=== PATIENT | female | born 1980 | race Caucasian/White ===

== ENCOUNTER 2021-02-19 03:44 | Outpatient (CLI) | payer BC, SELFPAY ==
[2021-02-19 15:24] LABS: ALT 21 U/L (14-59); AST 10 U/L (15-37); Albumin 3.9 g/dL (3.4-5.0); Alkaline Phosphatase 57 U/L (46-116); Anion Gap 8.5 mmol/L (3-11); BUN 13 mg/dL (7-18); Bilirubin, Total 0.7 mg/dL (0.2-1.0); CO2 27.5 mmol/L (21.0-32.0); CREATININE 0.8 mg/dL (0.55-1.02); Calcium 8.9 mg/dL (8.5-10.1); Chloride 104 mmol/L (98-107); Glucose 80 mg/dL (74-106); Magnesium 1.9 mg/dL (1.8-2.4); Potassium 4.1 mmol/L (3.5-5.1); Sodium 140 mmol/L (136-145); Total Protein 7.2 g/dL (6.4-8.2)
[2021-02-22 11:23] LABS: 25-Hydroxy D Total 43 ng/mL; 25-Hydroxy D2 <4.0 ng/mL; 25-Hydroxy D3 43 ng/mL
== END 2021-02-19 03:45 | disposition home or self-care (01) ==
LOC: LBO 03:44
PROVIDERS: PCP Internal Medicine; Visit Provider Naturopath
DX: E55.9 Vitamin D deficiency, unspecified (principal); Z79.2 Long term (current) use of antibiotics
CPT/HCPCS: 36415; 80053; 82306; 83735

== ENCOUNTER 2021-03-14 12:25 | Outpatient (CLI) | payer BC, SELFPAY ==
[2021-03-14 14:06] LABS: Abs Immature Grans 0.01 10^3/uL (0.0-0.06); Absolute Basophil Count 0.05 10^3/uL (0.0-0.2); Absolute Eosinophil Count 0.09 10^3/uL (0.0-0.7); Absolute Lymphocyte Count 1.48 10^3/uL (1.2-3.4); Absolute Monocyte Count 0.68 10^3/uL (0.1-0.8); Absolute Neutrophil Count 3.98 10^3/uL (1.2-6.7); Basophils % 0.8; Eosinophils % 1.4; HCT 40.1 % (36.0-46.0); HGB 13.4 g/dL (11.2-15.7); Immature Grans % 0.2; Lymphocytes % 23.5; MCHC 33.4 % (32.0-36.0); MCV 95.7 fL (80-95); MPV 9.7 fL (8.0-11.0); Monocytes % 10.8; Neutrophils % 63.3; Nucleated RBC 0 %; Platelet Count 279 10^3/uL (130-400); RBC 4.19 10^6/uL (3.93-5.22); RDW 12.3 % (11.7-14.6); RDW-SD 42.9 fL; WBC 6.29 10^3/uL (4.4-10.8)
[2021-03-14 15:26] LABS: ALT 33 U/L (14-59); AST 17 U/L (15-37); Albumin 3.7 g/dL (3.4-5.0); Alkaline Phosphatase 73 U/L (46-116); Anion Gap 3.7 mmol/L (3-11); BUN 10 mg/dL (7-18); Bilirubin, Total 0.5 mg/dL (0.2-1.0); CO2 29.3 mmol/L (21.0-32.0); CREATININE 0.8 mg/dL (0.55-1.02); Calcium 8.9 mg/dL (8.5-10.1); Chloride 105 mmol/L (98-107); Glucose 83 mg/dL (74-106); Potassium 4.1 mmol/L (3.5-5.1); Sodium 138 mmol/L (136-145); Total Protein 6.9 g/dL (6.4-8.2)
== END 2021-03-14 12:26 | disposition home or self-care (01) ==
LOC: LBO 12:28
PROVIDERS: PCP Internal Medicine; Visit Provider Naturopath
DX: Z79.2 Long term (current) use of antibiotics (principal)
CPT/HCPCS: 36415; 80053; 85025

== ENCOUNTER 2021-03-17 10:18 | Emergency (ER) | payer BC, SELFPAY ==
[2021-03-17 10:31] VITALS: BP 130/89; PULSE 82; RESP 18; TEMP 36.3; O2SAT 98
[2021-03-17 10:42] VITALS: RESP 18
[2021-03-17 10:57] LABS: Abs Immature Grans 0.01 10^3/uL (0.0-0.06); Absolute Basophil Count 0.03 10^3/uL (0.0-0.2); Absolute Eosinophil Count 0.07 10^3/uL (0.0-0.7); Absolute Lymphocyte Count 1.49 10^3/uL (1.2-3.4); Absolute Monocyte Count 0.51 10^3/uL (0.1-0.8); Absolute Neutrophil Count 3.66 10^3/uL (1.2-6.7); Basophils % 0.5; Eosinophils % 1.2; HCT 42.4 % (36.0-46.0); Immature Grans % 0.2; Lymphocytes % 25.8; MCH 31.7 pg (27.0-33.0); MCV 95.9 fL (80-95); Monocytes % 8.8; Neutrophils % 63.5; Nucleated RBC 0 %; Platelet Count 295 10^3/uL (130-400); RBC 4.42 10^6/uL (3.93-5.22); RDW 12.3 % (11.7-14.6); RDW-SD 43.3 fL; WBC 5.77 10^3/uL (4.4-10.8)
[2021-03-17] MEDS: Normal Saline 1,000 ML 1000 ML IV (11:00)
[2021-03-17 11:09] LABS: ALT 32 U/L (14-59); AST 14 U/L (15-37); Albumin 3.9 g/dL (3.4-5.0); Alkaline Phosphatase 75 U/L (46-116); Anion Gap 7.4 mmol/L (3-11); BUN 10 mg/dL (7-18); Bilirubin, Total 0.5 mg/dL (0.2-1.0); CO2 28.6 mmol/L (21.0-32.0); CREATININE 0.9 mg/dL (0.55-1.02); Calcium 8.5 mg/dL (8.5-10.1); Chloride 105 mmol/L (98-107); Glucose 90 mg/dL (74-106); Magnesium 1.8 mg/dL (1.8-2.4); Potassium 3.7 mmol/L (3.5-5.1); Sodium 141 mmol/L (136-145); Total Protein 7.5 g/dL (6.4-8.2)
--- NOTE | 2021-03-17 11:30 | ED.GENADUL_ITS ---
Discharge Plan Disposition Patient Disposition: HOME Condition: Improving Discharge Details Clinical Impression: Vertigo Primary Care Provider: Sergio Shaikh ED Provider: Shirley Prater Home Meds and New Rx's Prescriptions: No Action trazodone 50 MG tablet 12.5 mg PO HS RF: 0 lorazepam 0.5 MG tablet 0.5 mg PO PRN PRNRF: 0 amlodipine [Norvasc] 2.5 MG tablet 2.5 mg PO HS RF: 0 Discharge Instructions Instructions: Vertigo (ED) Additional Instructions: continue your home medication as previously prescribed. drink plenty of fluids to stay well hydrated return sooner for new or worsening symptoms Referrals: Sergio Shaikh [Primary Care Provider] - Medical Decision Making patient presents with symptoms of dizziness, worse with position changes, will establish IV, give 1 liter of NS, declines any further medication at this time including antiemetics. labs reviewed and unremarkable. patient symptoms resolved after receiving IV fluid, vitals are stable. is stable for and agreeable to discharge to home. no medication changes. follow up with outpatient team Lab Data Lab results reviewed: Yes I reviewed the patient's lab results. Labs: Laboratory Results - last 24 hr 03/17/21 03/17/21 10:40 10:40 WBC 5.77 RBC 4.42 Hgb 14.0 Hct 42.4 MCV 95.9 H MCH 31.7 MCHC 33.0 RDW 12.3 Plt Count 295 MPV 10.0 Immature Gran % 0.2 Neutrophils % 63.5 Lymphocytes % 25.8 Monocytes % 8.8 Eosinophils % 1.2 Basophils % 0.5 Nucleated RBC % 0 Absolute Neutrophils 3.66 Absolute Lymphocytes 1.49 Absolute Monocytes 0.51 Absolute Eosinophils 0.07 Absolute Basophils 0.03 Sodium 141 Potassium 3.7 Chloride 105 Carbon Dioxide 28.6 Anion Gap 7.4 BUN 10 Creatinine 0.9 Estimated GFR/1.73 m2 >= 60.00 Glucose 90 Calcium 8.5 Magnesium 1.8 Total Bilirubin 0.5 AST 14 L ALT 32 Alkaline Phosphatase 75 Total Protein 7.5 Albumin 3.9 HPI General Mode of arrival: ambulatory . Date/Time Provider Initiated Documentation: 03/17/21 10:23 . Limitations to Documentation: no limitations . Information obtained by: patient . HPI Narrative: patient presents for a sudden onset today of nausea, dizziness, no recent illness, no fevers has mild headache no vomiting. had been eating and drinking well, no similar history. has had lyme disease 4 years ago and is being treated and now with disulfiram which was started 4 weeks ago. Related Data Home Medications Medication Instructions Recorded Confirmed lorazepam 0.5 mg PO PRN PRN 04/14/16 09/07/17 trazodone 12.5 mg PO HS 04/14/16 09/07/17 amlodipine [Norvasc] 2.5 mg PO HS 09/07/17 09/07/17 Allergies Allergy/AdvReac Type Severity Reaction Status Date / Time Sulfa (Sulfonamide Allergy Intermediate Hives Unverified 09/07/17 16:03 Antibiotics) General Stated Complaint: Dizzy/Sync BRENDON: 3 Review of Systems All systems reviewed & are unremarkable except as noted in HPI and below Constitutional Constitutional: Denies fever(s) Eyes Eyes: Denies loss of vision ENT Ears, Nose, Mouth, and Throat: Reports vertigo, Reports dizziness and Denies disequilibrium Neurologic Neurologic: Reports vertigo, Reports dizziness, Denies localized weakness, Denies loss of vision, Denies convulsions and Denies disequilibrium PFSH Social History Smoking/Tobacco Use Status: Never Smoking risk assessment performed?: Yes Drug use: Never Do you feel safe in your relationship?: Yes Exam Const General: cooperative, healthy appearing and comfortable Nutritional Appearance: average body habitus Orientation: alert, awake and oriented x3 HENMT Head: normal to inspection, normocephalic and atraumatic Mouth: oral mucosae normal Eyes General: appearance normal, both eyes and all related structures Alignment and Position: alignment normal Eyelids: eyelids normal Conjunctivae: conjunctivae normal Sclera: sclerae normal Cornea: corneas normal EOM: EOM intact bilaterally and No nystagmus Resp Effort & Inspection: normal respiratory effort Cardio Rate: regular rate Rhythm: regular rhythm GI Inspection: normal to inspection Palpation: soft and nontender Auscultation: normal bowel sounds Skin General skin exam: no rashes or lesions noted Neuro General: patient alert, patient awake, patient oriented x3 and no focal motor deficits Cranial Nerves: CN's II-XI intact bilaterally, PERRL, EOM intact bilaterally, no nystagmus and no nystagmus Cognition: normal cognition Speech: speech normal Gait: normal gait Motor: muscle tone normal throughout Sensory Exam: no sensory deficits noted Extrem General: normal to inspection Course Vital Signs Vital signs: Vital Signs Temperature 36.3 C L 03/17/21 10:31 Pulse 82 03/17/21 10:31 Respiratory Rate 18 03/17/21 10:31 Blood Pressure 130/89 03/17/21 10:31 Pulse Oximetry 98 03/17/21 10:31 Temperature 36.3 C L 03/17/21 10:31 Temperature Source Temporal Artery Scan 03/17/21 10:31 Pulse 82 03/17/21 10:31 Respiratory Rate 18 03/17/21 10:42 Respiratory Effort Non-Labored 03/17/21 10:42 Respiratory Depth Normal 03/17/21 10:42 Respiratory Pattern Normal 03/17/21 10:42 Blood Pressure 130/89 03/17/21 10:31 Blood Pressure Position Sitting 03/17/21 10:31 Pulse Oximetry 98 03/17/21 10:31 Oxygen Delivery Method Room Air 03/17/21 10:31 Oxygen Flow Rate 0 03/17/21 10:31 Lab/Test Results Lab/Test Results: Laboratory Tests Range/Units 03/17/21 03/17/21 10:40 10:40 WBC (4.4-10.8) 10^3/uL 5.77 RBC (3.93-5.22) 10^6/uL 4.42 Hgb (11.2-15.7) g/dL 14.0 Hct (36.0-46.0) % 42.4 MCV (80-95) fL 95.9 H MCH (27.0-33.0) pg 31.7 MCHC (32.0-36.0) % 33.0 RDW (11.7-14.6) % 12.3 Plt Count (130-400) 10^3/uL 295 MPV (8.0-11.0) fL 10.0 Immature Gran % 0.2 Neutrophils % 63.5 Lymphocytes % 25.8 Monocytes % 8.8 Eosinophils % 1.2 Basophils % 0.5 Nucleated RBC % % 0 Absolute Neutrophils (1.2-6.7) 10^3/uL 3.66 Absolute Lymphocytes (1.2-3.4) 10^3/uL 1.49 Absolute Monocytes (0.1-0.8) 10^3/uL 0.51 Absolute Eosinophils (0.0-0.7) 10^3/uL 0.07 Absolute Basophils (0.0-0.2) 10^3/uL 0.03 Sodium (136-145) mmol/L 141 Potassium (3.5-5.1) mmol/L 3.7 Chloride (98-107) mmol/L 105 Carbon Dioxide (21.0-32.0) mmol/L 28.6 Anion Gap (3-11) mmol/L 7.4 BUN (7-18) mg/dL 10 Creatinine (0.55-1.02) mg/dL 0.9 Estimated GFR/1.73 m2 (mL/min/1.73m2) >= 60.00 Glucose (74-106) mg/dL 90 Calcium (8.5-10.1) mg/dL 8.5 Magnesium (1.8-2.4) mg/dL 1.8 Total Bilirubin (0.2-1.0) mg/dL 0.5 AST (15-37) U/L 14 L ALT (14-59) U/L 32 Alkaline Phosphatase (46-116) U/L 75 Total Protein (6.4-8.2) g/dL 7.5 Albumin (3.4-5.0) g/dL 3.9
[2021-03-17 12:06] LABS: Bilirubin Negative (Negative); Blood Negative (Negative); Clarity Clear (Clear); Glucose Negative (Negative); Ketones Negative (Negative); Leukocyte Esterase Negative (Negative); Nitrite Negative (Negative); Specific Gravity 1.015 (1.005-1.025); Urobilinogen 0.2 EU/dL (Up TO 0.2)
[2021-03-17 12:23] VITALS: BP 127/81; PULSE 85; RESP 16; TEMP 37; O2SAT 99
== END 2021-03-17 13:02 | disposition home or self-care (01) ==
PROVIDERS: Emergency Provider Nurse Practitioner Acute Care; PCP Internal Medicine
DX: R42 Dizziness and giddiness (principal); R11.0 Nausea
CPT/HCPCS: 36415; 80053; 96360; 99284; 81003; 83735; 85025; 99283

== ENCOUNTER 2021-03-28 02:57 | Outpatient (CLI) | payer BC, SELFPAY ==
[2021-03-28 15:59] LABS: Absolute Basophil Count 0.04 10^3/uL (0.0-0.2); Absolute Eosinophil Count 0.08 10^3/uL (0.0-0.7); Absolute Lymphocyte Count 1.23 10^3/uL (1.2-3.4); Absolute Neutrophil Count 2.28 10^3/uL (1.2-6.7); Basophils % 0.9; Eosinophils % 1.8; HCT 37.8 % (36.0-46.0); HGB 12.6 g/dL (11.2-15.7); Lymphocytes % 28.4; MCH 31.7 pg (27.0-33.0); MCHC 33.3 % (32.0-36.0); MCV 95.2 fL (80-95); MPV 10.4 fL (8.0-11.0); Monocytes % 16.2; Neutrophils % 52.7; Nucleated RBC 0 %; Platelet Count 216 10^3/uL (130-400); RBC 3.97 10^6/uL (3.93-5.22); RDW 12.5 % (11.7-14.6); RDW-SD 43.7 fL; WBC 4.33 10^3/uL (4.4-10.8)
[2021-03-28 17:13] LABS: ALT 21 U/L (14-59); AST 13 U/L (15-37); Albumin 3.9 g/dL (3.4-5.0); Alkaline Phosphatase 61 U/L (46-116); Anion Gap 11.9 mmol/L (3-11); BUN 8 mg/dL (7-18); Bilirubin, Total 0.6 mg/dL (0.2-1.0); CO2 24.1 mmol/L (21.0-32.0); CREATININE 0.8 mg/dL (0.55-1.02); Calcium 8.8 mg/dL (8.5-10.1); Chloride 103 mmol/L (98-107); Glucose 71 mg/dL (74-106); Potassium 3.7 mmol/L (3.5-5.1); Sodium 139 mmol/L (136-145)
== END 2021-03-28 02:58 | disposition home or self-care (01) ==
LOC: LBO 02:57
PROVIDERS: PCP Internal Medicine; Visit Provider Naturopath
DX: Z79.2 Long term (current) use of antibiotics (principal)
CPT/HCPCS: 36415; 80053; 85025

== ENCOUNTER 2021-04-11 04:04 | Outpatient (CLI) | payer BC, SELFPAY ==
[2021-04-11 15:56] LABS: Abs Immature Grans 0.02 10^3/uL (0.0-0.06); Absolute Basophil Count 0.04 10^3/uL (0.0-0.2); Absolute Eosinophil Count 0.09 10^3/uL (0.0-0.7); Absolute Lymphocyte Count 1.61 10^3/uL (1.2-3.4); Absolute Monocyte Count 0.59 10^3/uL (0.1-0.8); Absolute Neutrophil Count 3.03 10^3/uL (1.2-6.7); Basophils % 0.7; Eosinophils % 1.7; HGB 13.4 g/dL (11.2-15.7); Immature Grans % 0.4; Lymphocytes % 29.9; MCH 32.1 pg (27.0-33.0); MCHC 33.5 % (32.0-36.0); MCV 95.9 fL (80-95); Neutrophils % 56.3; Nucleated RBC 0 %; Platelet Count 263 10^3/uL (130-400); RBC 4.17 10^6/uL (3.93-5.22); RDW 12.4 % (11.7-14.6); RDW-SD 43.8 fL; WBC 5.38 10^3/uL (4.4-10.8)
[2021-04-11 16:40] LABS: ALT 32 U/L (14-59); AST 18 U/L (15-37); Albumin 3.8 g/dL (3.4-5.0); Alkaline Phosphatase 72 U/L (46-116); Anion Gap 9.6 mmol/L (3-11); BUN 7 mg/dL (7-18); Bilirubin, Total 0.3 mg/dL (0.2-1.0); CO2 28.4 mmol/L (21.0-32.0); CREATININE 0.9 mg/dL (0.55-1.02); Calcium 8.5 mg/dL (8.5-10.1); Chloride 102 mmol/L (98-107); Glucose 83 mg/dL (74-106); Potassium 3.3 mmol/L (3.5-5.1); Sodium 140 mmol/L (136-145)
== END 2021-04-11 04:05 | disposition home or self-care (01) ==
LOC: LBO 04:04
PROVIDERS: PCP Internal Medicine; Visit Provider Naturopath
DX: Z79.2 Long term (current) use of antibiotics (principal)
CPT/HCPCS: 36415; 80053; 85025

== ENCOUNTER 2021-04-25 00:57 | Outpatient (CLI) | payer BC, SELFPAY ==
[2021-04-25 16:13] LABS: Abs Immature Grans 0.01 10^3/uL (0.0-0.06); Absolute Basophil Count 0.05 10^3/uL (0.0-0.2); Absolute Eosinophil Count 0.11 10^3/uL (0.0-0.7); Absolute Lymphocyte Count 1.12 10^3/uL (1.2-3.4); Absolute Monocyte Count 0.66 10^3/uL (0.1-0.8); Absolute Neutrophil Count 2.13 10^3/uL (1.2-6.7); Basophils % 1.2; Eosinophils % 2.7; HCT 39.8 % (36.0-46.0); HGB 13.4 g/dL (11.2-15.7); Immature Grans % 0.2; Lymphocytes % 27.5; MCH 32.1 pg (27.0-33.0); MCHC 33.7 % (32.0-36.0); MCV 95.4 fL (80-95); MPV 10.6 fL (8.0-11.0); Monocytes % 16.2; Neutrophils % 52.2; Nucleated RBC 0 %; Platelet Count 245 10^3/uL (130-400); RBC 4.17 10^6/uL (3.93-5.22); RDW 12.7 % (11.7-14.6); RDW-SD 44.5 fL; WBC 4.08 10^3/uL (4.4-10.8)
[2021-04-25 17:07] LABS: ALT 32 U/L (14-59); AST 16 U/L (15-37); Albumin 3.7 g/dL (3.4-5.0); Alkaline Phosphatase 65 U/L (46-116); Anion Gap 10.3 mmol/L (3-11); BUN 9 mg/dL (7-18); Bilirubin, Total 0.3 mg/dL (0.2-1.0); CO2 26.7 mmol/L (21.0-32.0); Calcium 8.3 mg/dL (8.5-10.1); Chloride 103 mmol/L (98-107); Glucose 75 mg/dL (74-106); Potassium 3.9 mmol/L (3.5-5.1); Sodium 140 mmol/L (136-145); Total Protein 7.1 g/dL (6.4-8.2)
== END 2021-04-25 00:58 | disposition home or self-care (01) ==
PROVIDERS: PCP Internal Medicine; Visit Provider Naturopath
DX: Z79.2 Long term (current) use of antibiotics (principal)
CPT/HCPCS: 36415; 80053; 85025

== ENCOUNTER 2021-05-10 03:18 | Outpatient (CLI) | payer BC, SELFPAY ==
[2021-05-10 16:18] LABS: Abs Immature Grans 0.01 10^3/uL (0.0-0.06); Absolute Basophil Count 0.03 10^3/uL (0.0-0.2); Absolute Lymphocyte Count 1.48 10^3/uL (1.2-3.4); Absolute Monocyte Count 0.51 10^3/uL (0.1-0.8); Absolute Neutrophil Count 2.84 10^3/uL (1.2-6.7); Basophils % 0.6; HCT 41.4 % (36.0-46.0); HGB 13.7 g/dL (11.2-15.7); Immature Grans % 0.2; Lymphocytes % 29.8; MCH 31.3 pg (27.0-33.0); MCHC 33.1 % (32.0-36.0); MCV 94.5 fL (80-95); MPV 10.7 fL (8.0-11.0); Monocytes % 10.3; Neutrophils % 57.1; Nucleated RBC 0 %; Platelet Count 244 10^3/uL (130-400); RBC 4.38 10^6/uL (3.93-5.22); RDW 12.6 % (11.7-14.6); RDW-SD 43.9 fL; WBC 4.97 10^3/uL (4.4-10.8)
[2021-05-10 17:49] LABS: ALT 102 U/L (14-59); AST 41 U/L (15-37); Albumin 3.9 g/dL (3.4-5.0); Alkaline Phosphatase 94 U/L (46-116); Anion Gap 6.7 mmol/L (3-11); BUN 5 mg/dL (7-18); Bilirubin, Total 0.4 mg/dL (0.2-1.0); CO2 29.3 mmol/L (21.0-32.0); CREATININE 0.9 mg/dL (0.55-1.02); Chloride 103 mmol/L (98-107); Glucose 77 mg/dL (74-106); Sodium 139 mmol/L (136-145); Total Protein 7.1 g/dL (6.4-8.2)
== END 2021-05-10 03:19 | disposition home or self-care (01) ==
LOC: LBO 03:18
PROVIDERS: PCP Internal Medicine; Visit Provider Naturopath
DX: Z79.2 Long term (current) use of antibiotics (principal)
CPT/HCPCS: 36415; 80053; 85025

== ENCOUNTER 2021-05-23 01:15 | Outpatient (CLI) | payer BC, SELFPAY ==
--- NOTE | 2021-05-23 16:20 | DI.MAMMO_ITS ---
Exam(s) MAMMO SCREENING EXAM: MAMMO SCREENING CLINICAL HISTORY: SCREENING, BASELINE,Z12.31. TECHNIQUE: Bilateral full field digital CC and MLO mammographic images were obtained with 3D tomosyn thesis and utilizing computer aided detection (CAD). COMPARISON: None. This is a baseline screening mammogram on this 41-year-old patient. FINDINGS: Fibroglandular tissue pattern is moderately dense, this decreasing the sensitivity of the mammogram f or finding hidden underlying lesions. No obvious significant focal findings in the right breast In the upper outer quadrant of the left breast there is an asymmetric density seen on MLO images appr oximately 7 cm from nipple and measuring 8 x 8 millimeters. No malignant-appearing microcalcificatio n groups in this region or elsewhere in either breast There is no significant architectural distortion nor skin thickening-retraction. IMPRESSION: Moderately dense fibroglandular tissue. No radiographic evidence of malignancy in the right breast. Asymmetric density-possible nodule in the left breast as described above. Spot compression view and ultrasound recommended. Tissue in the density of this patient's fibroglandular tissue I recommend t hat the ultrasound examination be a bilateral study. BI-RADS Category 0 - Assessment Incomplete: Need additional imaging evaluation Breast Density - Category C - Heterogeneously dense Breast density Category C or D implies that the patient has dense breast tissue. Dense breast tissue can make it harder to find cancer on a mammogram. Dense breast tissue is also associated with an incr eased risk of breast cancer. This information about the result of the mammogram report was provided to the patient to raise their awareness. Use this report when you speak with the patient about their risks for breast cancer, which includes their family history. At that time, you may recommend additional screening tests (Ultrasoun d or MRI) as these tests may add significant information. A negative radiographic report should not delay biopsy if a dominant or clinically suspicious mass is present. Up to ten percent of cancers are not identified on mammography. A negative report may reinforce clinical impression. Adenosis and dense breasts may obscure an underlying neoplasm. False positive reports average 6 to 10%. Patient will receive a letter notifying them of these results.
== END 2021-05-23 01:35 ==
PROVIDERS: PCP Internal Medicine; Visit Provider Internal Medicine
DX: Z12.31 Encounter for screening mammogram for malignant neoplasm of breast (principal); R92.8 Other abnormal and inconclusive findings on diagnostic imaging of breast
CPT/HCPCS: 77063; 77067

== ENCOUNTER 2021-05-23 03:49 | Outpatient (CLI) | payer BC, SELFPAY ==
[2021-05-23 16:09] LABS: Abs Immature Grans 0.01 10^3/uL (0.0-0.06); Absolute Basophil Count 0.04 10^3/uL (0.0-0.2); Absolute Eosinophil Count 0.07 10^3/uL (0.0-0.7); Absolute Lymphocyte Count 1.56 10^3/uL (1.2-3.4); Absolute Monocyte Count 0.64 10^3/uL (0.1-0.8); Absolute Neutrophil Count 2.39 10^3/uL (1.2-6.7); Basophils % 0.8; Eosinophils % 1.5; HCT 40.1 % (36.0-46.0); HGB 13.5 g/dL (11.2-15.7); Immature Grans % 0.2; Lymphocytes % 33.1; MCH 32.1 pg (27.0-33.0); MCHC 33.7 % (32.0-36.0); MCV 95.2 fL (80-95); MPV 10.9 fL (8.0-11.0); Monocytes % 13.6; Neutrophils % 50.8; Nucleated RBC 0 %; Platelet Count 223 10^3/uL (130-400); RBC 4.21 10^6/uL (3.93-5.22); RDW 12.6 % (11.7-14.6); RDW-SD 43.8 fL; WBC 4.71 10^3/uL (4.4-10.8)
[2021-05-23 17:03] LABS: ALT 25 U/L (14-59); AST 12 U/L (15-37); Albumin 3.8 g/dL (3.4-5.0); Alkaline Phosphatase 78 U/L (46-116); Anion Gap 7.3 mmol/L (3-11); BUN 8 mg/dL (7-18); Bilirubin, Total 0.4 mg/dL (0.2-1.0); CO2 28.7 mmol/L (21.0-32.0); CREATININE 1.1 mg/dL (0.55-1.02); Calcium 8.6 mg/dL (8.5-10.1); Chloride 105 mmol/L (98-107); Estimated GFR 54.47 (mL/min/1.73m2); Glucose 83 mg/dL (74-106); Potassium 3.9 mmol/L (3.5-5.1); Sodium 141 mmol/L (136-145)
== END 2021-05-23 03:50 | disposition home or self-care (01) ==
LOC: LBO 03:49
PROVIDERS: PCP Internal Medicine; Visit Provider Naturopath
DX: Z79.2 Long term (current) use of antibiotics (principal)
CPT/HCPCS: 36415; 80053; 85025

== ENCOUNTER 2021-06-11 03:58 | Outpatient (CLI) | payer BC, SELFPAY ==
[2021-06-11 16:06] LABS: Abs Immature Grans 0.01 10^3/uL (0.0-0.06); Absolute Basophil Count 0.05 10^3/uL (0.0-0.2); Absolute Eosinophil Count 0.13 10^3/uL (0.0-0.7); Absolute Lymphocyte Count 1.53 10^3/uL (1.2-3.4); Absolute Monocyte Count 0.71 10^3/uL (0.1-0.8); Eosinophils % 2.5; HCT 39.3 % (36.0-46.0); HGB 12.9 g/dL (11.2-15.7); Immature Grans % 0.2; Lymphocytes % 29.8; MCH 31.2 pg (27.0-33.0); MCHC 32.8 % (32.0-36.0); MCV 95.2 fL (80-95); MPV 11.3 fL (8.0-11.0); Monocytes % 13.8; Neutrophils % 52.7; Nucleated RBC 0 %; Platelet Count 199 10^3/uL (130-400); RBC 4.13 10^6/uL (3.93-5.22); RDW 12.6 % (11.7-14.6); RDW-SD 43.9 fL; WBC 5.13 10^3/uL (4.4-10.8)
[2021-06-11 18:59] LABS: ALT 24 U/L (14-59); AST 13 U/L (15-37); Albumin 3.9 g/dL (3.4-5.0); Alkaline Phosphatase 78 U/L (46-116); Anion Gap 8.1 mmol/L (3-11); BUN 14 mg/dL (7-18); Bilirubin, Total 0.4 mg/dL (0.2-1.0); CO2 27.9 mmol/L (21.0-32.0); Calcium 8.5 mg/dL (8.5-10.1); Chloride 105 mmol/L (98-107); Glucose 76 mg/dL (74-106); Potassium 4.1 mmol/L (3.5-5.1); Sodium 141 mmol/L (136-145); Total Protein 6.8 g/dL (6.4-8.2)
== END 2021-06-11 03:59 | disposition home or self-care (01) ==
LOC: LBO 03:58
PROVIDERS: PCP Internal Medicine; Visit Provider Naturopath
DX: Z79.2 Long term (current) use of antibiotics (principal)
CPT/HCPCS: 36415; 80053; 85025

== ENCOUNTER 2021-06-22 01:53 | Outpatient (CLI) | payer BC, SELFPAY ==
--- NOTE | 2021-06-22 14:30 | DI.MAMMO_ITS ---
Exam(s) MG MAMMO SCREEN CALL BACK UNI US BREAST LT COMPLETE US BREAST RT COMPLETE EXAM: MG MAMMO SCREEN CALL BACK UNI CLINICAL HISTORY: ASYMMETRIC DENSITY LT BREAST. TECHNIQUE: mediolateral oblique spot compression digital Mammography views of the left breast follo wed by Tomosynthesis andbilateral breast ultrasound. COMPARISON: MG MG MAMMO SCREENING from 05/23/2021 MG MG MAMMO SCREENING from 05/23/2021 US US BREAST LT COMPLETE from 06/22/2021 US US BREAST RT COMPLETE from 06/22/2021 US US BREAST LT COMPLETE from 06/22/2021 US US BREAST RT COMPLETE from 06/22/2021 Baseline exam of 23 May 2021 FINDINGS: Mammography/Tomosynthesis: Masses/Architectural Distortion: None seen. Microcalcifictions: No suspicious pleomorphic-type are seen. Skin Thickening/Nipple Retraction: None. Bilateral breast US: Echotexture: Normal appearance of the glandular tissue. Shadowing: No suspicious foci. Cyst: 4 x 6 x 7 millimeter clustered microcysts 1 o'clock position upper outer quadrant 8 cm from th e nipple. Solid lesions: None seen. Ductal dilation: None. IMPRESSION: 1. No evidence of malignancy is noted. 2. Unless there is more urgent need, follow-up screening mammography is recommended, as per [place] [employer] guidelines. 3. The findings were discussed with the patient on the date of the examination. BI-RADS Category 2 - Benign Findings Breast Density - Category C - Heterogeneously dense A mammogram that demonstrates density of C or D indicates the patient's breast tissue is dense. Dense breast tissue is very common and is not abnormal, but dense breast tissue can make it harder to find cancer on a mammogram. Also, dense breast tissue may increase their breast cancer risk. This informa tion about the result of the mammogram report was provided to the patient to raise their awareness. U se this report when you speak with the patient about their risks for breast cancer, which includes th eir family history. At that time, you may recommend for more screening tests (Ultrasound or MRI) as t hey might be useful based on their risk. A negative radiographic report should not delay biopsy if a dominant or clinically suspicious mass is present. Up to ten percent of cancers are not identified on mammography. A negative report may reinforce clinical impression. Adenosis and dense breasts may obscure an underlying neoplasm. False positive reports average 6 to 10%. Patient will receive a letter notifying them of these results.
== END 2021-06-22 02:13 ==
PROVIDERS: PCP Internal Medicine; Visit Provider Internal Medicine
DX: Z12.31 Encounter for screening mammogram for malignant neoplasm of breast (principal); R92.8 Other abnormal and inconclusive findings on diagnostic imaging of breast; N60.12 Diffuse cystic mastopathy of left breast; N64.59 Other signs and symptoms in breast
CPT/HCPCS: 76642; 77063; 77067

== ENCOUNTER 2021-06-29 02:52 | Outpatient (CLI) | payer BC, SELFPAY ==
[2021-06-29 11:15] LABS: Abs Immature Grans 0.01 10^3/uL (0.0-0.06); Absolute Basophil Count 0.03 10^3/uL (0.0-0.2); Absolute Eosinophil Count 0.15 10^3/uL (0.0-0.7); Absolute Lymphocyte Count 1.26 10^3/uL (1.2-3.4); Absolute Monocyte Count 0.44 10^3/uL (0.1-0.8); Absolute Neutrophil Count 2.72 10^3/uL (1.2-6.7); Basophils % 0.7; Eosinophils % 3.3; HCT 40.5 % (36.0-46.0); HGB 13.5 g/dL (11.2-15.7); Immature Grans % 0.2; Lymphocytes % 27.3; MCHC 33.3 % (32.0-36.0); MPV 10.7 fL (8.0-11.0); Monocytes % 9.5; Nucleated RBC 0 %; Platelet Count 254 10^3/uL (130-400); RBC 4.22 10^6/uL (3.93-5.22); RDW 12.3 % (11.7-14.6); RDW-SD 43.3 fL; WBC 4.61 10^3/uL (4.4-10.8)
[2021-06-29 12:28] LABS: ALT 20 U/L (14-59); AST 13 U/L (15-37); Albumin 3.7 g/dL (3.4-5.0); Alkaline Phosphatase 82 U/L (46-116); Anion Gap 8.6 mmol/L (3-11); BUN 11 mg/dL (7-18); Bilirubin, Total 0.5 mg/dL (0.2-1.0); CO2 29.4 mmol/L (21.0-32.0); Calcium 8.4 mg/dL (8.5-10.1); Chloride 102 mmol/L (98-107); Glucose 76 mg/dL (74-106); Potassium 3.9 mmol/L (3.5-5.1); Sodium 140 mmol/L (136-145); Total Protein 6.9 g/dL (6.4-8.2)
== END 2021-06-29 02:53 | disposition home or self-care (01) ==
LOC: LBO 02:53
PROVIDERS: PCP Internal Medicine; Visit Provider Naturopath
DX: Z79.2 Long term (current) use of antibiotics (principal)
CPT/HCPCS: 36415; 80053; 85025

== ENCOUNTER 2021-07-13 01:06 | Outpatient (CLI) | payer BC, SELFPAY ==
[2021-07-13 15:47] LABS: Abs Immature Grans 0.01 10^3/uL (0.0-0.06); Absolute Basophil Count 0.05 10^3/uL (0.0-0.2); Absolute Eosinophil Count 0.12 10^3/uL (0.0-0.7); Absolute Lymphocyte Count 1.41 10^3/uL (1.2-3.4); Absolute Monocyte Count 0.82 10^3/uL (0.1-0.8); Basophils % 0.9; Eosinophils % 2.2; HCT 40.1 % (36.0-46.0); HGB 12.8 g/dL (11.2-15.7); Immature Grans % 0.2; Lymphocytes % 26.1; MCH 31.1 pg (27.0-33.0); MCHC 31.9 % (32.0-36.0); MCV 97.6 fL (80-95); MPV 10.5 fL (8.0-11.0); Monocytes % 15.2; Neutrophils % 55.4; Nucleated RBC 0 %; Platelet Count 250 10^3/uL (130-400); RBC 4.11 10^6/uL (3.93-5.22); RDW 12.6 % (11.7-14.6); RDW-SD 45.5 fL; WBC 5.41 10^3/uL (4.4-10.8)
[2021-07-13 16:39] LABS: ALT 22 U/L (14-59); AST 13 U/L (15-37); Albumin 3.9 g/dL (3.4-5.0); Alkaline Phosphatase 77 U/L (46-116); Anion Gap 9.5 mmol/L (3-11); BUN 10 mg/dL (7-18); Bilirubin, Total 0.5 mg/dL (0.2-1.0); CO2 26.5 mmol/L (21.0-32.0); CREATININE 0.9 mg/dL (0.55-1.02); Calcium 8.6 mg/dL (8.5-10.1); Chloride 105 mmol/L (98-107); Glucose 81 mg/dL (74-106); Sodium 141 mmol/L (136-145); Total Protein 7.1 g/dL (6.4-8.2)
== END 2021-07-13 01:07 | disposition home or self-care (01) ==
LOC: LBO 01:06
PROVIDERS: PCP Internal Medicine; Visit Provider Naturopath
DX: Z79.2 Long term (current) use of antibiotics (principal)
CPT/HCPCS: 36415; 80053; 85025

== ENCOUNTER 2021-09-19 01:47 | Outpatient (CLI) | payer BC, SELFPAY ==
[2021-09-19 07:51] LABS: Abs Immature Grans 0.01 10^3/uL (0.0-0.06); Absolute Basophil Count 0.05 10^3/uL (0.0-0.2); Absolute Eosinophil Count 0.14 10^3/uL (0.0-0.7); Absolute Lymphocyte Count 1.19 10^3/uL (1.2-3.4); Absolute Monocyte Count 0.63 10^3/uL (0.1-0.8); Absolute Neutrophil Count 2.82 10^3/uL (1.2-6.7); Eosinophils % 2.9; HCT 37.8 % (36.0-46.0); HGB 12.1 g/dL (11.2-15.7); Immature Grans % 0.2; Lymphocytes % 24.6; MCH 31.5 pg (27.0-33.0); MCV 98.4 fL (80-95); Neutrophils % 58.3; Nucleated RBC 0 %; Platelet Count 275 10^3/uL (130-400); RBC 3.84 10^6/uL (3.93-5.22); RDW-SD 46.9 fL; WBC 4.84 10^3/uL (4.4-10.8)
[2021-09-19] MEDS: Omnipaque 350 MG/ML 50 ML BTL PO (07:51)
[2021-09-19 08:05] LABS: ALT 13 U/L (14-59); AST 11 U/L (15-37); Albumin 3.7 g/dL (3.4-5.0); Alkaline Phosphatase 72 U/L (46-116); Anion Gap 7.9 mmol/L (3-11); BUN 11 mg/dL (7-18); Bilirubin, Total 0.3 mg/dL (0.2-1.0); CO2 26.1 mmol/L (21.0-32.0); CREATININE 0.8 mg/dL (0.55-1.02); Calcium 8.2 mg/dL (8.5-10.1); Chloride 103 mmol/L (98-107); Glucose 87 mg/dL (74-106); Potassium 3.6 mmol/L (3.5-5.1); Sodium 137 mmol/L (136-145)
--- NOTE | 2021-09-19 08:15 | DI.CT_ITS ---
Exam(s) CT ABDOMEN PELVIS W EXAM: CT ABDOMEN PELVIS W CLINICAL HISTORY: LLQ PAIN, R10.32 TECHNIQUE: Imaging Protocol: Axial computed tomography images with coronal and sagittal reformatted images were created and reviewed CONTRAST MATERIAL: Intravenous: Omnipaque 350 Contrast volume:100 mL Oral: Yes COMPARISON: CT ABD PELVIS WITH CONTRAST from 12/04/2017 FINDINGS: ABDOMEN: Lung Bases: Normal where visualized. There is a small hiatal hernia. Liver: Normal density. No measurable mass. Portal, Superior Mesenteric, and Splenic Veins: Unremarkable. Gallbladder and Biliary Tract: Status post cholecystectomy. No significant biliary ductal dilatation . Pancreas: Normal density, no abnormal calcifications or inflammatory process. Spleen: Normal. Adrenals: No masses seen. Kidneys: Normal size, contour and axis. No radiodense stones or obstructive uropathy. No masses seen. Abdominal Aorta: Abdominal portion non-dilated. Bowel: No obstruction or bowel wall thickening. No evidence of appendicitis. Peritoneal Cavity: No ascites, collection or mesenteric inflammatory response. No free air. Lymph Nodes: Within normal limits. Bones: Within normal limits for the patient's age. Soft Tissues: A marker was placed on the skin surface in the area of palpable concern. No subcutaneo us mass is identified. This does correspond to the largest uterine fibroid. Please see below. Ther e is a tiny fat containing umbilical hernia. PELVIS: Bladder: Symmetric distention, no gross wall thickening. Reproductive Organs: The uterus is enlarged measuring 15.5 cm long by 8.9 cm transverse by 9.0 cm AP. There are multiple uterine fibroids present there is a large calcified uterine fibroid in the left aspect of the uterus measuring 5 x 5.1 cm. There is a large fundal uterine fibroid measuring 6.2 x 6 .5 cm. This fundal uterine fibroid has significantly increased in size since the CT examination from 12/04/2017. Lymph Nodes: Within normal limits. Bones: Within normal limits for the patient's age. IMPRESSION: 1. No subcutaneous mass or abdominal wall mass to correspond to the palpable abnormality as identifie d by the patient with a BB marker. 2. Enlarged fibroid uterus. 3. No acute intra-abdominal or pelvic process. RADIATION DOSE DELIVERED: 812.77mGy.cm Total DLP DATA REPOSITORY: All CT scans at this facility are submitted to the National Radiology Data Registry (NRDR) Dose Index Registry (DIR) with the [employer] (A[employer]). RADIATION OPTIMIZATION: All CT scans at this facility use at least one of these dose optimization te chniques: automated exposure control; mA and/or kV adjustment per patient size (includes targeted exa ms where dose is matched to clinical indication); or iterative reconstruction.
[2021-09-19] MEDS: Omnipaque 350 MG/ML 100 ML BTL IJ (08:33)
[2021-09-19] MEDS: Normal Saline Flush 10 ML SYR IVP (08:34)
== END 2021-09-19 02:07 ==
PROVIDERS: PCP Internal Medicine; Visit Provider Internal Medicine
DX: Z79.2 Long term (current) use of antibiotics (principal); R10.32 Left lower quadrant pain; D25.9 Leiomyoma of uterus, unspecified
CPT/HCPCS: 80053; 74177; 85025; J3490; Q9967

== ENCOUNTER → 2023-03-24 03:18 | Outpatient (CLI) | payer BC, SELFPAY ==
--- NOTE | 2023-03-24 | DI.MAMMO_ITS ---
Exam(s) MAMMO SCREENING EXAM: MAMMO SCREENING CLINICAL HISTORY: SCREENING, Z00.00, HEALTH MAINTENANCE TECHNIQUE: Bilateral full field digital CC and MLO mammographic images were obtained with 3D tomosyn thesis and utilizing computer aided detection (CAD). COMPARISON: Available for comparison. FINDINGS: Masses/Architectural Distortion: There is a new 4 mm nodule 4 cm from the nipple on the MLO view. Microcalcifications: No suspicious pleomorphic-type are seen. Skin Thickening/Nipple Retraction: None. IMPRESSION: 1. New 4 mm nodule on the MLO view as described above. 2. This area should be further evaluated with a spot compression view. Limited left breast ultrasoun d should be obtained at that time. BI-RADS Category 0 - Assessment Incomplete: Need additional imaging evaluation Breast Density - Category C - Heterogeneously dense Breast density category C or D implies that the patient has dense breast tissue. Dense breast tissue is very common and is not abnormal but dense breast tissue can make it harder to find cancer on a ma mmogram. Also, dense breast tissue may increase their breast cancer risk. This information about the result of the mammogram report was provided to the patient to raise their awareness. Use this report when you speak with the patient about their risks for breast cancer, which includes their family hist ory. At that time, you may recommend for more screening tests (Ultrasound or MRI) as they might be us eful based on their risk. A negative radiographic report should not delay biopsy if a dominant or clinically suspicious mass is present. Up to ten percent of cancers are not identified on mammography. A negative report may reinforce clinical impression. Adenosis and dense breasts may obscure an underlying neoplasm. False positive reports average 6 to 10%. Patient will receive a letter notifying them of these results.
== END ==
PROVIDERS: PCP Internal Medicine; Visit Provider Internal Medicine
DX: Z12.31 Encounter for screening mammogram for malignant neoplasm of breast (principal)
CPT/HCPCS: 77063; 77067

== ENCOUNTER → 2023-03-25 12:30 | Outpatient (CLI) | payer BC, SELFPAY ==
--- NOTE | 2023-03-25 | DI.US_ITS ---
Exam(s) MG MAMMO SCREEN CALL BACK UNI US BREAST LT COMPLETE EXAM: MG MAMMO SCREEN CALL BACK UNI-LEFT AND COMPLETE LEFT BREAST ULTRASOUND CLINICAL HISTORY: F/U MAMMO, NEW LT BREAST NODULE. TECHNIQUE: Unilateral spot mammographic images obtained with 3D tomosynthesisand utilizing computer aided detection (CAD). . Complete LEFT breast Ultrasound was also performed, including all 4 quadrants, the retroareolar regio n, and the ipsilateral axilla. COMPARISON: Prior mammograms were reviewed. This additional imaging was performed due to findings described on the recent screening mammogram of 03/24/2023. FINDINGS: DIAGNOSTIC MAMMOGRAM: Additional mammographic views performed todaydoes not completely dissipate this nodule COMPLETE LEFT BREAST ULTRASOUND: Ultrasound performed today reveals no evidence of solid or significant cystic lesions in all 4 quadra nts nor in the retroareolar region. Scanning of the ipsilateral axilla reveals no significant adenopathy. IMPRESSION: 1. Small benign-appearing nodule on mammogram without focal correspond ultrasound finding, and there fore possibly a benign intramammary lymph node. Appropriate follow-up is repeat left breast mammogram in 6 months. The patient was informed of these findings and recommendations prior to leaving the department today. BI-RADS Category 3 - 6 month - Probably Benign Finding: Recommend follow-up mammography in 6 months Breast Density - Category C - Heterogeneously dense Breast density Category C or D implies that the patient has dense breast tissue. Dense breast tissue can make it harder to find cancer on a mammogram. Dense breast tissue is also associated with an incr eased risk of breast cancer. This information about the result of the mammogram report was provided to the patient to raise their awareness. Use this report when you speak with the patient about their risks for breast cancer, which includes their family history. At that time, you may recommend additional screening tests (Ultrasoun d or MRI) as these tests may add significant information. A negative radiographic report should not delay biopsy if a dominant or clinically suspicious mass is present. Up to ten percent of cancers are not identified on mammography. A negative report may reinforce clinical impression. Adenosis and dense breasts may obscure an underlying neoplasm. False positive reports average 6 to 10%. Patient will receive a letter notifying them of these results.
== END ==
PROVIDERS: PCP Internal Medicine; Visit Provider Internal Medicine
DX: Z12.31 Encounter for screening mammogram for malignant neoplasm of breast (principal); R92.8 Other abnormal and inconclusive findings on diagnostic imaging of breast
CPT/HCPCS: 76642; 77063; 77067

== ENCOUNTER → 2023-10-01 01:38 | Outpatient (CLI) | payer BC, SELFPAY ==
--- NOTE | 2023-10-01 | DI.MAMMO_ITS ---
Exam(s) MAMMO DIAGNOSTIC UNI EXAM: MAMMO DIAGNOSTIC UNI CLINICAL HISTORY: 6-MO F/U LT BREAST, SMALL BENIGN-APPEARING NODULE. TECHNIQUE: Craniocaudal and mediolateral oblique Full Field Digital Mammography views of the left br east with Computer Aided Diagnosis followed by Tomosynthesis. COMPARISON: Comparison is made with prior examinations. FINDINGS: Mammography/Tomosynthesis: Masses/Architectural Distortion: No suspicious nodules are identified. No new nodules are seen. No areas of architectural distortion are present. There is no change in appearance of the nodule in the upper left breast on the MLO view. Microcalcifictions: No suspicious pleomorphic-type are seen. Skin Thickening/Nipple Retraction: None. IMPRESSION: 1. No evidence of malignancy is noted. 2. Unless there is more urgent need, follow-up screening mammography is recommended, as per [place] [employer] guidelines. 3. The findings were discussed with the patient on the date of the examination. BI-RADS Category 2 - Benign Findings Breast Density - Category C - Heterogeneously dense Breast density Category C or D implies that the patient has dense breast tissue. Dense breast tissue can make it harder to find cancer on a mammogram. Dense breast tissue is also associated with an incr eased risk of breast cancer. This information about the result of the mammogram report was provided to the patient to raise their awareness. Use this report when you speak with the patient about their risks for breast cancer, which includes their family history. At that time, you may recommend additional screening tests (Ultrasoun d or MRI) as these tests may add significant information. A negative radiographic report should not delay biopsy if a dominant or clinically suspicious mass is present. Up to ten percent of cancers are not identified on mammography. A negative report may reinforce clinical impression. Adenosis and dense breasts may obscure an underlying neoplasm. False positive reports average 6 to 10%. Patient will receive a letter notifying them of these results.
== END ==
PROVIDERS: PCP Internal Medicine; Visit Provider Internal Medicine
DX: Z12.31 Encounter for screening mammogram for malignant neoplasm of breast (principal); R92.8 Other abnormal and inconclusive findings on diagnostic imaging of breast
CPT/HCPCS: 77061; 77065; G0279

== ENCOUNTER 2024-01-23 15:53 | Outpatient (REF) | payer BC, SELFPAY ==
--- NOTE | 2024-01-23 14:00 | ENDOMET_PTH ---
PATIENT: Tory Swift LOC: [facility] U#:[id number] AGE/SX: 43/F ROOM: RE01/23/[address]: Lakshmi Araiza MD : [id number] BED: DIS: 01/23/2024 SPEC #: [id number] RECD: 01/23/24 16:36 STATUS: LUPE REQ #: [id number] ANTONIETTA: 01/23/24 14:[address]: Lakshmi Araiza DEPT: Surgical Specimen RECD BY: Lucie Handy ENTERED: 01/23/24 16:36 SP TYPE: Endomet OTHR DR: Sergio Shaikh Tissues: 1 - ENDOMETRIUM ALFA/NELLI Procedures: GROSS AND MICRO LEVEL 4 Comments: [id number]
== END 2024-01-23 15:54 | disposition home or self-care (01) ==
LOC: LBN 15:53
PROVIDERS: PCP Internal Medicine; Visit Provider Obstetrics & Gynecology
DX: N92.0 Excessive and frequent menstruation with regular cycle (principal)
CPT/HCPCS: 88305

== ENCOUNTER 2025-05-12 04:24 | Outpatient (CLI) | payer BC, SELFPAY ==
--- NOTE | 2025-05-12 | DI.CT_ITS ---
Exam(s) CT ABDOMEN PELVIS W EXAM: CT ABDOMEN PELVIS W CLINICAL HISTORY: RT FLANK PAIN R10.9 RT SIDED ABD PAIN. TECHNIQUE: Imaging Protocol: Axial computed tomography images with coronal and sagittal reformatted images were created and reviewed CONTRAST MATERIAL: Intravenous: Omnipaque-350 75cc Oral: Yes. Oral contrast was also administered for bowel opacification. The oral contrast has reached the level of the rectum at time of image acquisition. COMPARISON: CT CT ABDOMEN PELVIS W from 09/19/2021 FINDINGS: VISUALIZED LUNG BASES: No nodules nor pleural effusions evident. ABDOMEN: There is no ascites. LIVER: There are no focal hepatic lesions evident. No dilated intrahepatic ducts. GALLBLADDER/BILIARY: The gallbladder is again noted to be surgically absent. CBD is not dilated. PANCREAS: Very subtle haziness around the pancreatic head. Possibly significant. The remainder of the pancreas appears unremarkable. Pancreatic duct is not dilated. There are no pancreatic parenchymal calcifications. SPLEEN: Spleen is not enlarged. No obvious intrasplenic lesions. Splenic and portal veins are patent. ADRENALS: There are no significant adrenal masses. KIDNEYS:No cysts evident. No solid renal masses. No calculi nor hydronephrosis.. However, left ureter is mildly dilated, this related to extrinsic compression by the multiple left larger than right uterine fibroids. ABDOMINAL AORTA: Abdominal aorta is not enlarged. LYMPH NODES:There is no retroperitoneal nor paraaortic adenopathy. ABDOMINAL WALL: Small anterior abdominal wall umbilical fat containing hernia, similar to previous. GI: There is no evidence of bowel obstruction, free air, nor abscess. PELVIS: GI: No evidence of appendicitis.Terminal ileum appears unremarkable.No significant sigmoid diverticular disease evident. LYMPH NODES: There is no intrapelvic nor inguinal adenopathy. REPRODUCTIVE: The anteverted uterus is significantly enlarged (16 cm length) extending up to the umbilical level, even larger than previous September 2021 scan. There are multiple large fibroids on both sides the uterus as well as at the fundus. The largest fibroid is at the fundal level and measures approximately 9 by 9 cm. There is also a heavily calcified left-sided fibroid again noted which measures approximately 5 by 4.5 cm. There is also mild thickening of the endometrium when compared to the prior study. Right ovary appears unremarkable. Small for follicular cyst noted in the left ovary measuring approximately 1 cm. There is no free fluid. URINARY BLADDER: . the urinary bladder is somewhat compressed by the fibroid uterus. There are, however, no focal abnormalities within the urinary bladder lumen. OSSEOUS: No fractures and no significant osseous lesions. IMPRESSION: 1. In this patient with right-sided pain there is no evidence of acute appendicitis nor diverticulitis. 2. Very mild streaking around the pancreatic head. This is very subtle. No other pancreatic findings. Recommend appropriate blood work. 3. Grossly enlarged and fibroid uterus again noted but this has further increased in size when compared to 202 with multiple fibroids measuring up to 9 cm size. Although there is no hydronephrosis, the left ureter is slightly prominent, this due to extrinsic compression by the enlarged uterus and large left-sided uterine fibroids. There is no radiopaque calculus seen within the left ureter. There are no calculi in the kidneys. No abnormal masses nor enhancement pattern in the kidneys. 4. In addition to multiple uterine fibroids measuring up to 9 cm size there also appears to be some thickening of the endometrium, more so than previous. Should be followed with ultrasound. Other findings as above. RADIATION DOSE DELIVERED: 617.83mGy.cm Total DLP DATA REPOSITORY: All CT scans at this facility are submitted to the National Radiology Data Registry (NRDR) Dose Index Registry (DIR) with the [employer] ([employer]). RADIATION OPTIMIZATION: All CT scans at this facility use at least one of these dose optimization techniques: automated exposure control; mA and/or kV adjustment per patient size (includes targeted exams where dose is matched to clinical indication); or iterative reconstruction.
[2025-05-12] MEDS: Barium Sulfate 2% W/V-Berry Smoothie 450 ML BTL PO (11:57)
[2025-05-12] MEDS: Barium Sulfate 2% W/V-Creamy Vanilla Smoothie 450 ML BTL PO (11:57)
[2025-05-12 12:31] LABS: Estimated GFR 91.97 (mL/min/1.73m2)
[2025-05-12] MEDS: Omnipaque 350 MG/ML 100 ML BTL IJ (13:55)
[2025-05-12] MEDS: Normal Saline - Diluent 50 ML VIAL IJ (13:56)
== END 2025-05-12 04:44 ==
LOC: DI 04:24
PROVIDERS: PCP Internal Medicine; Visit Provider Internal Medicine
DX: R10.9 Unspecified abdominal pain (principal)
CPT/HCPCS: 74177; 82565; J3490

== ENCOUNTER 2025-06-10 09:58 | Outpatient (CLI) | payer BC, SELFPAY ==
[2025-06-10 12:55] LABS: Amylase 54 U/L (25-115); C-Reactive Protein < 0.50 mg/dL (<or=0.5)
[2025-06-10 13:28] LABS: Vitamin D 25 Total 28 ng/mL (30-100)
== END 2025-06-10 09:59 | disposition home or self-care (01) ==
LOC: LBO 10:00
PROVIDERS: PCP Internal Medicine; Visit Provider Naturopath
DX: R10.9 Unspecified abdominal pain (principal); R68.89 Other general symptoms and signs; E55.9 Vitamin D deficiency, unspecified; R74.8 Abnormal levels of other serum enzymes; M79.2 Neuralgia and neuritis, unspecified; R71.8 Other abnormality of red blood cells
CPT/HCPCS: 36415; 82306; 82150; 86140